=== PATIENT | male | born 1935 | race Caucasian/White ===

== ENCOUNTER 2018-06-14 15:12 | Emergency (ER) | payer MEDICARE, MEDICAID ==
[~2018-06-14] VITALS: Ht 188 cm; Wt 86.2 kg
[~2018-06-14 15:12] MED LIST: ACET325T53 PO; ALBU2.5V38 IH; ASCO500C18 PO; ASPI-605 PO; BISA10SU12 RC; CHLO118L TP; CRAN425C6 PO; ESOM40CA PO; FERR220S18 PO; GABA-532 PO; GABA-534 PO; HYDR-3972 PO; HYDR25TA4 PO; LEVO137T2 PO; MAGN400O6 PO; METF-440 PO; MINE454C11 TOP; MULT1TAB73 PO; MUPI22OI2 NS; NA P133E RC; POLY17PO4 PO; RIVA20TA PO
[2018-06-14] MEDS ORDERED: DEXT1DRO6 OP (16:13)
[2018-06-14] MEDS ORDERED: HYDR453.3 TP (16:13)
[2018-06-14] MEDS ORDERED: MELA3TAB PO (16:13)
[2018-06-14] MEDS ORDERED: TRIA15CR2 TP (16:13)
[2018-06-14] MEDS ORDERED: BENZ1LOZ58 MM (16:13)
[2018-06-14] MEDS ORDERED: HYDR-4384 PO (16:13)
[2018-06-14] MEDS ORDERED: KETO15CR2 TP (16:14)
[2018-06-14] MEDS ORDERED: HYDR-3326 PO (16:14)
[2018-06-14] MEDS ORDERED: [UNRECOGNIZED DRUG - OTHER] PO (16:14)
--- NOTE | 2018-06-14 16:49 | NUR ---
Dr. verde replaced the old folley,gauge 18 with a nre gauge 18 folley cath without difficulty.
--- NOTE | 2018-06-14 17:09 | NUR ---
lisseth called [facility]ins around 190, trip number [id number].
--- NOTE | 2018-06-14 17:43 | NUR ---
raghav staton provided for pt.
--- NOTE | 2018-06-14 19:00 | NUR ---
Assumed care of pt at this time. Pt resting in bed, alert, awake, oriented. Appears in no apparent distress. Here for suprapubic catheter replacement. Pending [facility] transportation to arrive ETA [id number].
--- NOTE | 2018-06-14 20:11 | NUR ---
Patient discharged to home in stable conditon. Written and verbal after care instructions given. Patient verbalizes understanding of instructions. [facility] unit [facility] here to transport pt back to [facility]. VSS. No acute distres noted.
[2018-06-14 20:12] VITALS: BP 114/85
== END 2018-06-14 20:33 | disposition home or self-care (01) ==
LOC: ER 15:14
DX: Z46.6 Encounter for fitting and adjustment of urinary device (principal); I10 Essential (primary) hypertension; E11.9 Type 2 diabetes mellitus without complications; Z79.891 Long term (current) use of opiate analgesic; Z79.899 Other long term (current) drug therapy; Z79.82 Long term (current) use of aspirin
CPT/HCPCS: A4663

== ENCOUNTER 2018-07-09 14:13 | Inpatient (IN) | payer MEDICARE, MEDICAID ==
[~2018-07-09] VITALS: Ht 188 cm; Wt 86.2 kg
[~2018-07-09 14:13] MED LIST changes: -ALBU2.5V38 IH; +BENZ1LOZ58 MM; -CHLO118L TP; +DEXT1DRO6 OP; +HYDR-3326 PO; -HYDR-3972 PO; +HYDR-4384 PO; +HYDR453.3 TP; +KETO15CR2 TP; +MELA3TAB PO; +TRIA15CR2 TP; +[UNRECOGNIZED DRUG - OTHER] PO
[2018-07-09] MEDS ORDERED: OMEP40CA37 PO (14:30)
[2018-07-09] MEDS ORDERED: DUTA0.5C PO (14:30)
[2018-07-09] MEDS ORDERED: TAMS-3 PO (14:30)
[2018-07-09] MEDS ORDERED: METF-495 PO (14:30)
[2018-07-09 14:55] LABS: BASOPHILS % (AUTO) 0.7 % (0.0-2.0); EOSINOPHILS # (AUTO) 0.3 K/uL (0.0-0.7); EOSINOPHILS % (AUTO) 5.3 % (0.0-7.0); HEMATOCRIT 35.5 % (36.7-47.1); HEMOGLOBIN 11.5 g/dL (12.5-16.3); LYMPHOCYTES # (AUTO) 1.3 K/uL (20.0-40.0); LYMPHOCYTES % (AUTO) 20.2 % (20.5-51.5); MEAN CORPUSCULAR HEMOGLOBIN 28.3 uug (23.8-33.4); MEAN CORPUSCULAR HGB CONC 32 g/dL (32.5-36.3); MEAN CORPUSCULAR VOLUME 87.3 fL (73.0-96.2); MONOCYTES # (AUTO) 0.4 K/uL (2.0-10.0); MONOCYTES % (AUTO) 6.4 % (0.0-11.0); NEUTROPHILS # (AUTO) 4.4 K/uL (1.8-8.9); NEUTROPHILS % (AUTO) 67.4 % (38.5-71.5); PLATELET COUNT (AUTO) 339 K/uL (152-348); RED BLOOD CELL COUNT(AUTO) 4.06 MIL/uL (4.06-5.63); WHITE BLOOD COUNT (AUTO) 6.5 K/uL (3.6-10.2)
[2018-07-09 15:12] LABS: CARBON DIOXIDE 28 mmol/L (21-32); CHLORIDE 102 mmol/L (98-107); CREATININE 0.8 mg/dL (0.6-1.3); GLUCOSE 147 mg/dL (74-106); UREA NITROGEN, BLOOD 20 mg/dL (7-18)
[2018-07-09] MEDS ORDERED: IV NORMAL SALINE 1000 ML BAG IV ONE (15:15)
[2018-07-09] MEDS ORDERED: PIPERACILLIN SODIUM/TAZOBACTAM 3.375 G in IV DEXTROSE 5% 50 ML IV ONE (15:15)
[2018-07-09 15:25] LABS: *BILIRUBIN,URIN NEGATIVE (NEGATIVE); *KETONES,URINE TRACE (NEGATIVE); LEUKOCYTE ESTERASE ,URINE 2+ (NEGATIVE); NITRITE, URINE POSITIVE (NEGATIVE); PH,URINE >=9.0 (5.0-8.0); UGLUCOSE NEGATIVE (NEGATIVE)
[2018-07-09 15:26] LABS: ALANINE AMINOTRANSFERASE 12 U/L (16-63); ALKALINE PHOSPHATASE 110 U/L (50-136); ASPARTATE AMINOTRANSFERASE 8 U/L (15-37); BILIRUBIN,DIRECT 0.1 mg/dL (0.0-0.2); BILIRUBIN,TOTAL 0.2 mg/dL (0.2-1.0); TOTAL PROTEIN, SERUM 6.9 g/dL (6.4-8.2)
[2018-07-09] MEDS ORDERED: PIPERACILLIN/TAZOBACTAM/D5W 50 ML IV ONE (15:31)
[2018-07-09 15:34] LABS: *BLOOD, URINE TRACE (NEGATIVE); *CLARITY,URINE CLOUDY (CLEAR); *COLOR,URINE YELLOW (YELLOW)
[2018-07-09 15:37] LABS: BACTERIA,URINE MANY /HPF (NONE SEEN); MUCUS,URINE MANY /LPF (0-FEW); SQUAMOUS EPITHELIAL CELL,UR FEW /HPF (NONE SEEN); TRIPLE PHOSPHATE CRYSTAL,UR MANY /HPF (NONE SEEN); WBC,URINE 50-80 /HPF (0-3)
[2018-07-09 17:34] VITALS: BP 147/91
[2018-07-09 21:00] VITALS: BP 125/67
[2018-07-09] MEDS ORDERED: ACETAMINOPHEN 325 MG TABLET PO PRN (23:00)
[2018-07-09] MEDS ORDERED: MELATONIN 3 MG TABLET PO PRN (23:00)
[2018-07-09] MEDS ORDERED: BISACODYL 10 MG SUPP.RECT RC PRN (23:00)
[2018-07-09] MEDS ORDERED: HYDROCODONE/APAP 5-325MG TABLET PO PRN (23:00)
[2018-07-09] MEDS ORDERED: FLEET ENEMA 133 ML BOTTLE RC PRN (23:00)
[2018-07-09] MEDS ORDERED: Z GUARD REMEDY PASTE 57 GM TUBE TOP PRN (23:00)
[2018-07-09] MEDS ORDERED: ONDANSETRON 4 MG/2 ML VIAL IV PRN (23:00)
[2018-07-09] MEDS ORDERED: DEXTROSE 50% 50 ML DISP.SYRIN IV PRN (23:30)
[2018-07-10] MEDS: IV NS 1000 ML 1,000 ML IV PRN ×2 (00:10→12:35)
[2018-07-10] MEDS: BLOOD SUGAR DIAGNOSTIC 1 EACH STRIP VI SCH ×5 (00:19→21:21)
[2018-07-10] MEDS: INSULIN REGULAR, HUMAN 300 UNIT/3 ML VIAL SQ PRN ×4 (00:57→21:29)
[2018-07-10 01:05] VITALS: BP 103/54
[2018-07-10] MEDS ORDERED: PIPERACILLIN/TAZOBACTAM/D5W 50 ML IV ONE (01:29)
[2018-07-10] MEDS ORDERED: INSULIN REGULAR, HUMAN 300 UNIT/3 ML VIAL ONE (01:30)
[2018-07-10 05:31] VITALS: BP 115/58
[2018-07-10] MEDS ORDERED: PIPERACILLIN/TAZOBACTAM/D5W 50 ML IV SCH (06:00)
[2018-07-10 06:34] LABS: BASOPHILS % (AUTO) 0.7 % (0.0-2.0); EOSINOPHILS # (AUTO) 0.4 K/uL (0.0-0.7); EOSINOPHILS % (AUTO) 5.5 % (0.0-7.0); HEMATOCRIT 33.1 % (36.7-47.1); HEMOGLOBIN 10.8 g/dL (12.5-16.3); LYMPHOCYTES # (AUTO) 1.2 K/uL (20.0-40.0); LYMPHOCYTES % (AUTO) 15.7 % (20.5-51.5); MEAN CORPUSCULAR HEMOGLOBIN 28.7 uug (23.8-33.4); MEAN CORPUSCULAR HGB CONC 33 g/dL (32.5-36.3); MEAN CORPUSCULAR VOLUME 87.7 fL (73.0-96.2); MONOCYTES # (AUTO) 0.3 K/uL (2.0-10.0); MONOCYTES % (AUTO) 4.2 % (0.0-11.0); NEUTROPHILS # (AUTO) 5.5 K/uL (1.8-8.9); NEUTROPHILS % (AUTO) 73.9 % (38.5-71.5); PLATELET COUNT (AUTO) 313 K/uL (152-348); RED BLOOD CELL COUNT(AUTO) 3.77 MIL/uL (4.06-5.63); WHITE BLOOD COUNT (AUTO) 7.4 K/uL (3.6-10.2)
[2018-07-10 06:47] LABS: ALANINE AMINOTRANSFERASE 11 U/L (16-63); ALKALINE PHOSPHATASE 95 U/L (50-136); ASPARTATE AMINOTRANSFERASE 5 U/L (15-37); BILIRUBIN,TOTAL 0.2 mg/dL (0.2-1.0); CARBON DIOXIDE 32 mmol/L (21-32); CHLORIDE 104 mmol/L (98-107); CHOLESTEROL 140 mg/dL (<200); CREATININE 0.7 mg/dL (0.6-1.3); GLUCOSE 118 mg/dL (74-106); HDL CHOLESTEROL 49 mg/dL (40-60); MAGNESIUM 1.4 mg/dL (1.8-2.4); PHOSPHOROUS 2.9 mg/dL (2.5-4.9); POTASSIUM 3.9 mmol/L (3.5-5.1); TRIGLYCERIDES 73 MG/DL (30-150); UREA NITROGEN, BLOOD 16 mg/dL (7-18)
[2018-07-10 06:54] LABS: THYROID STIMULATING HORMONE 3.986 mIU/mL (0.358-3.740)
[2018-07-10] MEDS: LEVOTHYROXINE SODIUM 137 MCG TABLET PO SCH (08:24)
[2018-07-10] MEDS: ASPIRIN EC 81 MG TABLET.DR PO SCH (08:24)
[2018-07-10] MEDS: GABAPENTIN 100 MG CAPSULE PO SCH ×2 (08:24→17:11)
[2018-07-10] MEDS: HYDROCHLOROTHIAZIDE 25 MG TABLET PO SCH (08:25)
[2018-07-10] MEDS: MIRALAX 17 GM POWD.PACK PO SCH (08:28)
[2018-07-10 11:42] VITALS: BP 138/66
[2018-07-10] MEDS: PIPERACILLIN/TAZOBACTAM/D5W 3.375 G in PREMIXED 1 EACH IV SCH ×2 (14:11→23:48)
[2018-07-10] MEDS ORDERED: MAGNESIUM SULFATE/D5W 100 ML IV SCH (15:00)
[2018-07-10 16:30] VITALS: BP 107/53
[2018-07-10] MEDS: MUPIROCIN 2% OINT 22 GM TUBE NS SCH (18:01)
[2018-07-10] MEDS: RIVAROXABAN 10 MG TABLET PO SCH (18:03)
[2018-07-10] MEDS: MAGNESIUM SULFATE/D5W 100 ML IV SCH ×4 (18:38→22:51)
[2018-07-10 20:00] VITALS: BP 110/52
[2018-07-10] MEDS: TAMSULOSIN HCL 0.4 MG CAP.SR.24H PO SCH (20:57)
[2018-07-10] MEDS: DUTASTERIDE 0.5 MG CAPSULE PO SCH (20:57)
[2018-07-10] MEDS: HYDROCODONE/APAP 5-325MG TABLET PO SCH (20:59)
[2018-07-10] MEDS: GABAPENTIN 300 MG CAPSULE PO SCH (21:08)
[2018-07-11] VITALS: BP 108/52
[2018-07-11 04:54] VITALS: BP 114/53
[2018-07-11] MEDS: PIPERACILLIN/TAZOBACTAM/D5W 3.375 G in PREMIXED 1 EACH IV SCH (05:04)
[2018-07-11] MEDS: BLOOD SUGAR DIAGNOSTIC 1 EACH STRIP VI SCH ×4 (05:12→21:27)
[2018-07-11 06:46] LABS: BASOPHILS % (AUTO) 0.5 % (0.0-2.0); EOSINOPHILS # (AUTO) 0.4 K/uL (0.0-0.7); EOSINOPHILS % (AUTO) 5.6 % (0.0-7.0); HEMATOCRIT 33.7 % (36.7-47.1); HEMOGLOBIN 11.1 g/dL (12.5-16.3); MEAN CORPUSCULAR HEMOGLOBIN 28.8 uug (23.8-33.4); MEAN CORPUSCULAR HGB CONC 33 g/dL (32.5-36.3); MEAN CORPUSCULAR VOLUME 87.6 fL (73.0-96.2); MONOCYTES # (AUTO) 0.3 K/uL (2.0-10.0); NEUTROPHILS # (AUTO) 4.8 K/uL (1.8-8.9); NEUTROPHILS % (AUTO) 73.9 % (38.5-71.5); PLATELET COUNT (AUTO) 326 K/uL (152-348); RED BLOOD CELL COUNT(AUTO) 3.85 MIL/uL (4.06-5.63); WHITE BLOOD COUNT (AUTO) 6.5 K/uL (3.6-10.2)
[2018-07-11 06:59] LABS: ALANINE AMINOTRANSFERASE 10 U/L (16-63); ALKALINE PHOSPHATASE 93 U/L (50-136); ASPARTATE AMINOTRANSFERASE 8 U/L (15-37); BILIRUBIN,TOTAL 0.3 mg/dL (0.2-1.0); CARBON DIOXIDE 32 mmol/L (21-32); CHLORIDE 102 mmol/L (98-107); CREATININE 0.9 mg/dL (0.6-1.3); GLUCOSE 162 mg/dL (74-106); MAGNESIUM 2.1 mg/dL (1.8-2.4); POTASSIUM 4.1 mmol/L (3.5-5.1); TOTAL PROTEIN, SERUM 6.3 g/dL (6.4-8.2); UREA NITROGEN, BLOOD 13 mg/dL (7-18)
[2018-07-11 08:21] VITALS: BP 111/64
[2018-07-11] MEDS: INSULIN REGULAR, HUMAN 300 UNIT/3 ML VIAL SQ PRN ×3 (08:26→17:49)
[2018-07-11] MEDS: MIRALAX 17 GM POWD.PACK PO SCH (08:26)
[2018-07-11] MEDS: GABAPENTIN 100 MG CAPSULE PO SCH ×2 (08:27→17:53)
[2018-07-11] MEDS: LEVOTHYROXINE SODIUM 137 MCG TABLET PO SCH (08:27)
[2018-07-11] MEDS: ASPIRIN EC 81 MG TABLET.DR PO SCH (08:27)
[2018-07-11] MEDS: MUPIROCIN 2% OINT 22 GM TUBE NS SCH ×2 (08:28→18:19)
[2018-07-11] MEDS: HYDROCHLOROTHIAZIDE 25 MG TABLET PO SCH (08:28)
[2018-07-11 11:57] VITALS: BP 127/42
[2018-07-11 16:26] VITALS: BP 110/60
[2018-07-11] MEDS: RIVAROXABAN 10 MG TABLET PO SCH (17:53)
[2018-07-11] MEDS: IV NS 1000 ML 1,000 ML IV PRN (17:54)
[2018-07-11 21:06] VITALS: BP 108/55
[2018-07-11] MEDS: GABAPENTIN 300 MG CAPSULE PO SCH (21:26)
[2018-07-11] MEDS: HYDROCODONE/APAP 5-325MG TABLET PO SCH (21:26)
[2018-07-11] MEDS: TAMSULOSIN HCL 0.4 MG CAP.SR.24H PO SCH (21:27)
[2018-07-11] MEDS: DUTASTERIDE 0.5 MG CAPSULE PO SCH (21:27)
[2018-07-12 04:00] VITALS: BP 117/65
[2018-07-12] MEDS: BLOOD SUGAR DIAGNOSTIC 1 EACH STRIP VI SCH ×3 (06:46→16:34)
[2018-07-12 06:47] LABS: BASOPHILS % (AUTO) 0.7 % (0.0-2.0); EOSINOPHILS # (AUTO) 0.5 K/uL (0.0-0.7); EOSINOPHILS % (AUTO) 6.6 % (0.0-7.0); HEMATOCRIT 32.8 % (36.7-47.1); HEMOGLOBIN 10.8 g/dL (12.5-16.3); LYMPHOCYTES # (AUTO) 1.3 K/uL (20.0-40.0); LYMPHOCYTES % (AUTO) 18.8 % (20.5-51.5); MEAN CORPUSCULAR HEMOGLOBIN 28.8 uug (23.8-33.4); MEAN CORPUSCULAR HGB CONC 33 g/dL (32.5-36.3); MONOCYTES # (AUTO) 0.4 K/uL (2.0-10.0); MONOCYTES % (AUTO) 5.9 % (0.0-11.0); NEUTROPHILS # (AUTO) 4.6 K/uL (1.8-8.9); PLATELET COUNT (AUTO) 313 K/uL (152-348); RED BLOOD CELL COUNT(AUTO) 3.77 MIL/uL (4.06-5.63); WHITE BLOOD COUNT (AUTO) 6.8 K/uL (3.6-10.2)
[2018-07-12 07:02] LABS: CARBON DIOXIDE 33 mmol/L (21-32); CHLORIDE 104 mmol/L (98-107); CREATININE 0.7 mg/dL (0.6-1.3); GLUCOSE 123 mg/dL (74-106); MAGNESIUM 1.6 mg/dL (1.8-2.4); PHOSPHOROUS 2.6 mg/dL (2.5-4.9); POTASSIUM 3.9 mmol/L (3.5-5.1); UREA NITROGEN, BLOOD 13 mg/dL (7-18)
[2018-07-12] MEDS: INSULIN REGULAR, HUMAN 300 UNIT/3 ML VIAL SQ PRN ×3 (08:28→16:33)
[2018-07-12] MEDS: IV NS 1000 ML 1,000 ML IV PRN (08:30)
[2018-07-12] MEDS: MIRALAX 17 GM POWD.PACK PO SCH (09:37)
[2018-07-12] MEDS: LEVOTHYROXINE SODIUM 137 MCG TABLET PO SCH (09:37)
[2018-07-12] MEDS: HYDROCHLOROTHIAZIDE 25 MG TABLET PO SCH (09:40)
[2018-07-12] MEDS: ASPIRIN EC 81 MG TABLET.DR PO SCH (09:42)
[2018-07-12] MEDS: GABAPENTIN 100 MG CAPSULE PO SCH (09:42)
[2018-07-12] MEDS: MUPIROCIN 2% OINT 22 GM TUBE NS SCH (09:46)
[2018-07-12 11:25] VITALS: BP 107/53
[2018-07-12] MEDS: MAGNESIUM SULFATE/D5W 100 ML IV SCH ×2 (14:07→15:03)
[2018-07-12 15:04] VITALS: BP 110/56
== END 2018-07-12 16:50 | DRG 690 ==
LOC: ER 14:13 → TELE3 16:52 → MEDSURG3 07-11 23:30
PROVIDERS: ADMIT Nurse Practitioner Acute Care; ATTEND Nurse Practitioner Acute Care
DX: N39.0 Urinary tract infection, site not specified (principal); E44.1 Mild protein-calorie malnutrition; N40.1 Benign prostatic hyperplasia with lower urinary tract symptoms; N13.8 Other obstructive and reflux uropathy; N31.9 Neuromuscular dysfunction of bladder, unspecified; E11.42 Type 2 diabetes mellitus with diabetic polyneuropathy; Z79.82 Long term (current) use of aspirin; Z79.84 Long term (current) use of oral hypoglycemic drugs; Z79.899 Other long term (current) drug therapy; E86.0 Dehydration; E11.65 Type 2 diabetes mellitus with hyperglycemia; I11.9 Hypertensive heart disease without heart failure; F03.90 Unspecified dementia, unspecified severity, without behavioral disturbance, psychotic disturbance, mood disturbance, and anxiety; Z79.890 Hormone replacement therapy; R13.10 Dysphagia, unspecified; Z86.73 Personal history of transient ischemic attack (TIA), and cerebral infarction without residual deficits; Z79.01 Long term (current) use of anticoagulants
CPT/HCPCS: 36415; 70030-TC; 71045; 83605; 83735; 84100; 84443; 85025; 85730; 87040; 87077; 87086; 87400; 93005; 93307; 97110; 97530; A4663; G0378; J0290; J1815; J2543; J3475; J7030